=== PATIENT | female | born 2000 | race Caucasian/White ===

== ENCOUNTER 2021-01-02 18:54 | Emergency (ER) | payer OTHER ==
[2021-01-02 19:30] LABS: BASOPHIL 0.2 % (0-2); EOSINOPHIL 1.8 % (0-5); HCT 30.6 % (37.0-47.0); HGB 10.2 g/dl (12.5-16.0); LYMPHOCYTE 12.3 % (15-48); MCHC 33.3 g/dL (32.0-36.0); MONOCYTE 6.2 % (0-12); MPV 10.6 fL (6.0-9.5); NEUTROPHIL 78.9 % (41-80); NRBC 0; PLT 233 K/uL (150-400); RBC 3.29 M/uL (4.20-5.40); RDW 13.8 % (11.5-14.0); WBC 14.1 K/uL (4.0-10.5)
[2021-01-02 19:49] LABS: ALBUMIN 2.6 g/dL (3.4-5.0); BILIRUBIN - TOTAL 0.2 mg/dL (0.2-1.0); BUN/CREAT RATIO (CALC) 13.2 RATIO; CREATININE 0.68 mg/dL (0.51-0.95); GLOBULIN (CALCULATION) 4.3 g/dL; POTASSIUM 3.8 mmol/L (3.5-5.1); TOTAL PROTEIN 6.9 g/dL (6.4-8.2)
[2021-01-02 19:56] LABS: LACTIC ACID 0.9 mmol/L (0.4-1.9)
[2021-01-02 20:23] LABS: BILIRUBIN NEGATIVE (NEGATIVE); BLOOD 3+ Ery/uL (NEGATIVE); CLARITY HAZY (CLEAR); COLOR YELLOW (YELLOW); GLUCOSE (U) NORMAL (NORMAL); LEUKOCYTES 2+ Leu/uL (NEGATIVE); NITRITE NEGATIVE (NEGATIVE); PROTEIN TRACE (LOW) mg/dL (NEGATIVE); SPECIFIC GRAVITY 1.025 (1.001-1.030); UROBILINOGEN 0.2 mg/dL (0.2-1.0)
[2021-01-02 20:30] LABS: BACTERIA 2+; URINARY RBC TNTC; URINARY WBC TNTC
[2021-01-02] MEDS ORDERED: CEPHALEXIN500 M1 PO (20:40)
[2021-01-02] MEDS ORDERED: BACTRIM DS TAB1 EACH PO (20:40)
[2021-01-02] MEDS ORDERED: DIFLUCAN150 MG PO (22:41)
== END 2021-01-02 20:59 | disposition home or self-care (01) ==
LOC: FER 18:54
PROVIDERS: Emergency Medicine Emergency Medical Services
DX: O86.01 Infection of obstetric surgical wound, superficial incisional site (principal); N39.0 Urinary tract infection, site not specified; Z98.890 Other specified postprocedural states
CPT/HCPCS: 36415; 80053; 81001; 83605; 84145; 85025; 87040; 87070; 87077; 87088; 87186; 87205; J1885

== ENCOUNTER 2021-02-05 23:31 | Day surgery (SDCO) | payer OTHER ==
[~2021-02-05 23:31] MED LIST: BACTRIM DS TAB1 EACH PO; CEPHALEXIN500 M1 PO; DIFLUCAN150 MG PO
[2021-02-06 00:56] LABS: BASOPHIL 0.4 % (0-2); EOSINOPHIL 0.4 % (0-5); HCT 37.3 % (37.0-47.0); LYMPHOCYTE 10.4 % (15-48); MCH 28.4 pg (25.0-31.0); MCHC 32.2 g/dL (32.0-36.0); MCV 88.4 fL (78.0-100.0); MPV 10.7 fL (6.0-9.5); NEUTROPHIL 83.4 % (41-80); NRBC 0; PLT 236 K/uL (150-400); RBC 4.22 M/uL (4.20-5.40); RDW 13.2 % (11.5-14.0); WBC 13.5 K/uL (4.0-10.5)
[2021-02-06 01:21] LABS: ALBUMIN 3.5 g/dL (3.4-5.0); BILIRUBIN - TOTAL 0.3 mg/dL (0.2-1.0); BUN/CREAT RATIO (CALC) 22.2 RATIO; CREATININE 0.63 mg/dL (0.51-0.95); GLOBULIN (CALCULATION) 4.1 g/dL; TOTAL PROTEIN 7.6 g/dL (6.4-8.2)
[2021-02-06 02:41] LABS: BILIRUBIN NEGATIVE (NEGATIVE); BLOOD NEGATIVE Ery/uL (NEGATIVE); CLARITY CLEAR (CLEAR); COLOR YELLOW (YELLOW); GLUCOSE (U) NORMAL (NORMAL); LEUKOCYTES 1+ Leu/uL (NEGATIVE); NITRITE NEGATIVE (NEGATIVE); PROTEIN NEGATIVE (NEGATIVE); SPECIFIC GRAVITY 1.015 (1.001-1.030); UROBILINOGEN 0.2 mg/dL (0.2-1.0)
[2021-02-06 02:53] LABS: BACTERIA 1+
[2021-02-06] MEDS ORDERED: COLACE100 MG PO (04:39)
[2021-02-06] MEDS ORDERED: ZOLOFT50 MG PO (04:40)
[2021-02-06] MEDS ORDERED: HYDROCODON-ACE1 EAC2 PO (13:41)
[2021-02-06] MEDS ORDERED: AUGMENTIN 875-1 EACH PO (15:36)
[2021-02-06] MEDS ORDERED: ONDANSETRON ODT4 MG PO (15:37)
[2021-02-06] MEDS ORDERED: DIFLUCAN150 MG PO (17:41)
== END 2021-02-06 18:42 | disposition home or self-care (01) ==
LOC: FER 23:31 → FMS 02-06 03:27
PROVIDERS: Emergency Medicine Emergency Medical Services; ADMIT Internal Medicine
DX: K80.10 Calculus of gallbladder with chronic cholecystitis without obstruction (principal); R16.1 Splenomegaly, not elsewhere classified; N20.0 Calculus of kidney; F17.210 Nicotine dependence, cigarettes, uncomplicated; Z83.3 Family history of diabetes mellitus; Z20.822 Contact with and (suspected) exposure to COVID-19; Z79.899 Other long term (current) drug therapy
CPT/HCPCS: 36415; 76705; 80053; 81001; 83690; 84702; 85025; 94010; C9113; G0378; J0694; J1100; J1170; J1885; J2250; J2405; J2543; J2704; J2710; J3010; J7030; J7120; Q9967; U0002